=== PATIENT | female | born 1950 | race American Indian/Alaskan Native ===

== ENCOUNTER 2017-01-31 14:42 | Outpatient (CLI) | payer MEDICARE | END 2017-01-31 14:43 | disposition home or self-care (01) | LOC: LABHHL 14:42 | PROVIDERS: ATTEND Internal Medicine Gastroenterology | DX: Z98.890 Other specified postprocedural states (principal) | CPT/HCPCS: 88305 ==

== ENCOUNTER 2021-03-24 06:10 | Observation (INO) | payer MEDICARE ==
[2021-03-22 13:33] LABS: Hematocrit 37.3 % (30.3-42.9); Hemoglobin 11.9 gm/dl (10.1-14.3); Mean Corpuscular HGB Conc 32 % (30-34); Mean Corpuscular Volume 81 fl (79-97); Platelet Count 178 K/mm3 (140-440); Red Blood Count 4.59 M/mm3 (3.65-5.03); Red Cell Distribution Width 15.5 % (13.2-15.2)
[2021-03-22 13:42] LABS: Blood Urea Nitrogen 18 mg/dL (7-17); Calcium 8.9 mg/dL (8.4-10.2); Hemolysis Index 11
--- NOTE | 2021-03-22 14:06 | Anesthesia Consultation ---
Anesthesia Consult and Med Hx Date of service: 03/24/21 - Airway Anesthetic Teeth Evaluation: Poor, Chipped ROM Head & Neck: Adequate Mental/Hyoid Distance: Adequate Mallampati Class: Class I Intubation Access Assessment: Good - Pre-Operative Health Status ASA Pre-Surgery Classification: ASA4 Proposed Anesthetic Plan: General - Pulmonary Hx Smoking: Yes (STOPPED 1998-1PPD X 17YRS) Hx Asthma: Yes (Uses PRN inhalers USED LAST IN FEBRUARY 2021) Hx Respiratory Symptoms: Yes (Chronic bronchitis) SOB: Yes (NOVAK) COPD: Yes Hx Pneumonia: No Hx Sleep Apnea: Yes (COMPLIANT) - Cardiovascular System Hx Hypertension: Yes (20YRS) Hx Coronary Artery Disease: No Hx Heart Attack/AMI: No Hx Pacemaker: No Hx Internal Defibrillator: No Hx Heart Murmur: No - Central Nervous System Hx Neuromuscular Disorder: Yes (Neuropathy RUE) Hx Seizures: No Hx Back Pain: Yes Hx Psychiatric Problems: No - Gastrointestinal Hx Gastroesophageal Reflux Disease: Yes (Mild) - Endocrine Hx Renal Disease: Yes (Stones) Hx End Stage Renal Disease: No Hx Cirrhosis: No Hx Liver Disease: No Hx Non-Insulin Dependent Diabetes: Yes (No meds. 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
[2021-03-22 14:22] LABS: BUN/Creatinine Ratio 26
[~2021-03-24 06:10] MED LIST: BACTERIOSTATIC SODIUM CHLORIDE 0.9% 30 ML VIAL INFILTRATI ONE; LACTATED RINGERS 1,000 ML IV SCH
[2021-03-24] MEDS ORDERED: ceFAZolin/STERILE WATER 2 GM/20 ML SYRINGE IV NR (07:00)
[2021-03-24] MEDS ORDERED: ONDANSETRON 4 MG/2 ML INJ IV PRN ×2 (07:19→10:00)
--- NOTE | 2021-03-24 07:19 | Anesthesia Day of Surgery ---
Anesthesia Day of Surgery - Day of Surgery Patient Examined: Yes Patient H&P Reviewed: Yes Patient is NPO: Yes
[2021-03-24] MEDS ORDERED: propofoL 200 MG/20 ML VIAL IV ONE (07:20)
[2021-03-24] MEDS ORDERED: LIDOCAINE MPF (2%) 20 MG/1 ML VIAL 5 ML ONE (07:20)
[2021-03-24] MEDS ORDERED: MIDAZOLAM 2 MG/2 ML INJ ONE (07:40)
[2021-03-24] MEDS ORDERED: IOHEXOL 240 MG/ML 200 ML IV ONE (08:30)
[2021-03-24] MEDS ORDERED: SODIUM CHLORIDE 0.9% 0 ML ONE (08:49)
[2021-03-24] MEDS ORDERED: SODIUM CHLORIDE 0.9% 50 ML ONE (08:50)
[2021-03-24] MEDS ORDERED: ONDANSETRON 4 MG/2 ML INJ ONE (08:56)
[2021-03-24] MEDS ORDERED: NALOXONE 0.4 MG/1 ML INJ IV PRN (09:08)
[2021-03-24] MEDS: HYDROmorphone 1 MG/1 ML INJ IV PRN ×4 (09:14→09:50)
[2021-03-24] MEDS ORDERED: NON-FORMULARY EACH (Albuterol Sulfate [Proair Respiclick] 90 MCG Aer.Pow.Ba) IH SCH (09:15)
[2021-03-24] MEDS ORDERED: KETOROLAC 30 MG/1 ML INJ IV NR (09:59)
[2021-03-24] MEDS ORDERED: LISINOPRIL PO SCH (10:00)
[2021-03-24] MEDS ORDERED: SODIUM CHLORIDE 0.45% 1000 ML 1,000 ML IV SCH (10:00)
[2021-03-24] MEDS ORDERED: HYDROCHLOROTHIAZIDE PO SCH (10:00)
[2021-03-24] MEDS ORDERED: ACETAMINOPHEN 325 MG TAB PO PRN (10:00)
[2021-03-24] MEDS ORDERED: amLODIPine 10 MG TAB PO SCH (10:00)
[2021-03-24] MEDS ORDERED: MORPHINE 2 MG/1 ML INJ IV PRN (10:00)
[2021-03-24] MEDS ORDERED: atenoloL 25 MG TAB PO SCH (10:00)
[2021-03-24] MEDS ORDERED: KETOROLAC 30 MG/1 ML INJ ONE (10:02)
--- NOTE | 2021-03-24 10:08 | Short Stay Summary ---
Short Stay Documentation Date of service: 03/24/21 - History H&P: obtained from office - Allergies and Medications Current Medications: Allergies sulfamethoxazole Allergy (Verified 03/22/21 14:51) Unknown Home Medications Medication Instructions Recorded Confirmed Last Taken Type Cholecalciferol Vit D3 [Vitamin D3 5,000 unit PO DAILY tablet 01/08/16 03/04/16 Unknown Rx 1,000 UNIT TAB] amLODIPine 10 mg PO DAILY tablet 01/08/16 03/24/21 03/24/21 03:30 Rx atenoloL [Tenormin] 12.5 mg PO DAILY tablet 01/08/16 03/24/21 03/24/21 03:30 Rx Potassium Chloride [Klor-Con M20] 20 meq PO QDAY 03/04/16 03/04/16 Unknown History Albuterol Sulfate [Proair 90 mcg IH PRN 03/19/21 03/19/21 Unknown History Respiclick] Aspirin 81 mg PO DAILY 03/19/21 03/19/21 Unknown History Black Cumin 1 tab PO DAILY 03/19/21 Unknown History Calcium & Magnesium 1 tab PO DAILY 03/19/21 Unknown History Lisinop/Hctz 20 mg PO DAILY 03/19/21 Unknown History Tart Sosa Capsule 1 cap PO DAILY 03/19/21 03/19/21 Unknown History Turmeric 1 cap PO DAILY 03/19/21 03/19/21 Unknown History Active Medications Acetaminophen (Acetaminophen 325 Mg Tab) 650 mg PO Q4H PRN PRN Reason: Pain MILD(1-3)/Fever >100.5/AYALA Hydrocodone Bitart/Acetaminophen (Hydrocodone/Acetaminophen 5-325 Mg Tab) 2 each PO Q6H PRN PRN Reason: Pain, Moderate (4-6) Albuterol (Albuterol 2.5 Mg/3 Ml Nebu) 2.5 mg IH Q4HRT PRN PRN Reason: Shortness Of Breath Amlodipine Besylate (Amlodipine 10 Mg Tab) 10 mg PO DAILY SELINA Atenolol (Atenolol 25 Mg Tab) 12.5 mg PO DAILY SELINA Cefazolin Sodium (Cefazolin/Sterile Water 2 Gm/20 Ml Syringe) 2 gm IV PREOP NR Stop: 03/24/21 20:00 Hydromorphone HCl (Hydromorphone 1 Mg/1 Ml Inj) 0.25 mg IV Q10MIN PRN PRN Reason: Pain, Moderate (4-6) Stop: 03/24/21 23:00 Last Admin: 03/24/21 09:24 Dose: 0.25 mg Documented by: Hydromorphone HCl (Hydromorphone 1 Mg/1 Ml Inj) 0.5 mg IV Q10MIN PRN PRN Reason: Pain , Severe (7-10) Stop: 03/24/21 23:00 Last Admin: 03/24/21 09:50 Dose: 0.5 mg Documented by: Lactated Ringer's (Lactated Ringers) 1,000 mls @ 42 mls/hr IV DIRECT SELINA Last Admin: 03/24/21 07:45 Dose: 42 mls/hr Documented by: Sodium Chloride (Nacl 0.45% 1000 Ml) 1,000 mls @ 100 mls/hr IV DIRECT SELINA Cefazolin Sodium (Ancef/Ns 1 Gm/50 Ml) 1 gm in 50 mls @ 100 mls/hr IV Q8H SELINA; Protocol Ketorolac Tromethamine (Ketorolac 30 Mg/1 Ml Inj) 15 mg IV ONCE NR Stop: 03/24/21 16:00 Miscellaneous Medication (Lisinop/Hctz) 20 mg PO DAILY SELINA Morphine Sulfate (Morphine 2 Mg/1 Ml Inj) 2 mg IV Q4H PRN PRN Reason: Pain, Moderate (4-6) Naloxone HCl (Naloxone 0.4 Mg/1 Ml Inj) 0.1 mg IV Q2MIN PRN PRN Reason: Res Rate </= 8 or 02 SAT < 92% Ondansetron HCl (Ondansetron 4 Mg/2 Ml Inj) 4 mg IV ONCE PRN PRN Reason: Nausea And Vomiting Stop: 03/24/21 13:00 Ondansetron HCl (Ondansetron 4 Mg/2 Ml Inj) 4 mg IV Q8H PRN PRN Reason: Nausea And Vomiting Sodium Chloride (Sodium Chloride 0.9% 10 Ml Flush Syringe) 10 ml IV BID SELINA Sodium Chloride (Sodium Chloride 0.9% 10 Ml Flush Syringe) 10 ml IV PRN PRN PRN Reason: LINE FLUSH - Brief post op/procedure progress note Date of procedure: 03/24/21 Pre-op diagnosis: left hydro Post-op diagnosis: same Procedure: cysto, rpg, flex left ureteroscopy, attempted stent Anesthesia: RAISAA Surgeon: ASHOK GAVIN Estimated blood loss: none Pathology: list (barbotage) Condition: stable - Hospital course Hospital course: unable to place stent---dense stricture (blockage) consult IR for perc tube consult hospitalist for medical mgmt perc tube placed----stent per dr. orozco/bina serna & pain meds on chart - Disposition Condition at discharge: Stable Disposition: [id number] TO HOME OR [facility] Short Stay Discharge Plan Follow up with: JENNI BABB [Other] - 7 Days
[2021-03-24] MEDS ORDERED: LISINOPRIL 20 MG TAB PO SCH (11:00)
[2021-03-24] MEDS ORDERED: hydroCHLOROthiazide 25 MG TAB PO SCH (11:00)
--- NOTE | 2021-03-24 11:04 | Event Note ---
Date: 03/24/21 70-year-old female with left-sided hydronephrosis who requires nephrostomy tube placement and possible stent placement with inability to place the cystoscopically. Ordered CT scan. Restored diet. N.p.o. after midnight except sips of water with meds. Plan for nephrostomy tube tomorrow.
--- NOTE | 2021-03-24 11:38 | Consultation ---
History of Present Illness - Reason for Consult Consult date: 03/24/21 Medical Mx Requesting physician: ASHOK CUTLER - History of Present Illness 70-year-old female with history of obesity asthma hypertension who initially came to hospital for cystoscopy and stent placement for left-sided hydronephrosis by urologist Dr. Cutler. But Dr. Cutler was unable to put a stent with cystoscopy. IR has been consulted to place a left PCN tube. Patient is being admitted for observation. Hospitalist service has been consulted for medical management. Past medical History: h/o asthma, hypertension, morbid obesity Past surgical History: s/p hysterectomy, hip replacement, right knee replacement Social History: Lives with family, denies any smoking, drinking and elicit drug abuse. Family History: Significant for colon cancer in sister, brother has history of chronic kidney disease Review of System: Constitutional: no fever, no chills, no weight loss Ears, eyes, nose, mouth and throat: no nasal congestion, no nasal discharge, no sinus pressure, no vision change, no red eye. Neck: No neck pain or rigidity. Cardiovascular: No chest pain, no orthopnea, no palpitations, no leg swelling Respiratory: No shortness of breath, no cough, no congestion, no wheezing Gastrointestinal: no abdominal pain, no nausea, no vomiting Genitourinary : no dysuria, no hematuria Musculoskeletal: no joint swelling or muscle ache Integumentary: no rash, no pruritis Neurological: no parathesias, no numbness, no tingling Endocrine: no cold or heat intolerance, no polyuria or polydipsia Hematologic/Lymphatic: no easy bruising, no easy bleeding, no gland swelling Allergic/Immunologic: no urticaria, no angioedema. Medications and Allergies Allergies Allergy/AdvReac Type Severity Reaction Status Date / Time sulfamethoxazole Allergy Unknown Verified 03/22/21 14:51 Home Medications Medication Instructions Recorded Confirmed Last Taken Type Cholecalciferol Vit D3 [Vitamin D3 5,000 unit PO DAILY tablet 01/08/16 03/24/21 03/20/21 Rx 1,000 UNIT TAB] amLODIPine 10 mg PO DAILY tablet 01/08/16 03/24/21 03/24/21 05:30 Rx atenoloL [Tenormin] 12.5 mg PO DAILY tablet 01/08/16 03/24/21 03/24/21 05:30 Rx Potassium Chloride [Klor-Con M20] 20 meq PO QDAY 03/04/16 03/24/21 03/20/21 History Albuterol Sulfate [Proair 90 mcg IH PRN 03/19/21 03/24/21 1 Month Ago History Respiclick] ~02/22/21 Aspirin 81 mg PO DAILY 03/19/21 03/24/21 1 Week Ago History ~03/17/21 Black Cumin 1 tab PO DAILY 03/19/21 03/24/21 03/20/21 History Calcium & Magnesium 1 tab PO DAILY 03/19/21 03/24/21 03/20/21 History Lisinop/Hctz 20 mg PO DAILY 03/19/21 03/24/21 03/20/21 History Tart Sosa Capsule 1 cap PO DAILY 03/19/21 03/19/21 03/20/21 History Turmeric 1 cap PO DAILY 03/19/21 03/19/21 03/20/21 History Toviaz 8 mg PO DAILY 03/24/21 03/24/21 03/20/21 History metFORMIN 500 mg PO DAILY 03/24/21 03/24/21 03/20/21 History Active Meds: Active Medications Acetaminophen (Acetaminophen 325 Mg Tab) 650 mg PO Q4H PRN PRN Reason: Pain MILD(1-3)/Fever >100.5/AYALA Hydrocodone Bitart/Acetaminophen (Hydrocodone/Acetaminophen 5-325 Mg Tab) 2 each PO Q6H PRN PRN Reason: Pain, Moderate (4-6) Albuterol (Albuterol 2.5 Mg/3 Ml Nebu) 2.5 mg IH Q4HRT PRN PRN Reason: Shortness Of Breath Amlodipine Besylate (Amlodipine 10 Mg Tab) 10 mg PO DAILY SELINA Atenolol (Atenolol 25 Mg Tab) 12.5 mg PO DAILY SELINA Cefazolin Sodium (Cefazolin/Sterile Water 2 Gm/20 Ml Syringe) 2 gm IV PREOP NR Stop: 03/24/21 20:00 Hydrochlorothiazide (Hydrochlorothiazide 25 Mg Tab) 25 mg PO QDAY SELINA Hydromorphone HCl (Hydromorphone 1 Mg/1 Ml Inj) 0.25 mg IV Q10MIN PRN PRN Reason: Pain, Moderate (4-6) Stop: 03/24/21 23:00 Last Admin: 03/24/21 09:24 Dose: 0.25 mg Documented by: Hydromorphone HCl (Hydromorphone 1 Mg/1 Ml Inj) 0.5 mg IV Q10MIN PRN PRN Reason: Pain , Severe (7-10) Stop: 03/24/21 23:00 Last Admin: 03/24/21 09:50 Dose: 0.5 mg Documented by: Lactated Ringer's (Lactated Ringers) 1,000 mls @ 42 mls/hr IV DIRECT SELINA Last Admin: 03/24/21 07:45 Dose: 42 mls/hr Documented by: Sodium Chloride (Nacl 0.45% 1000 Ml) 1,000 mls @ 100 mls/hr IV DIRECT SELINA Cefazolin Sodium (Ancef/Ns 1 Gm/50 Ml) 1 gm in 50 mls @ 100 mls/hr IV Q8H SELINA; Protocol Ketorolac Tromethamine (Ketorolac 30 Mg/1 Ml Inj) 15 mg IV ONCE NR Stop: 03/24/21 16:00 Last Admin: 03/24/21 10:06 Dose: 15 mg Documented by: Lisinopril (Lisinopril 20 Mg Tab) 20 mg PO QDAY SELINA Morphine Sulfate (Morphine 2 Mg/1 Ml Inj) 2 mg IV Q4H PRN PRN Reason: Pain, Moderate (4-6) Naloxone HCl (Naloxone 0.4 Mg/1 Ml Inj) 0.1 mg IV Q2MIN PRN PRN Reason: Res Rate </= 8 or 02 SAT < 92% Ondansetron HCl (Ondansetron 4 Mg/2 Ml Inj) 4 mg IV ONCE PRN PRN Reason: Nausea And Vomiting Stop: 03/24/21 13:00 Ondansetron HCl (Ondansetron 4 Mg/2 Ml Inj) 4 mg IV Q8H PRN PRN Reason: Nausea And Vomiting Sodium Chloride (Sodium Chloride 0.9% 10 Ml Flush Syringe) 10 ml IV BID SELINA Sodium Chloride (Sodium Chloride 0.9% 10 Ml Flush Syringe) 10 ml IV PRN PRN PRN Reason: LINE FLUSH Exam - Physical Exam Narrative exam: GENERAL: Morbidly obese elderly AA female lying on bed appeared to be in no di [place]om[place]. HEENT: Normocephalic. Atraumatic. No conjunctival congestion or icterus. Patient has moist mucous membranes. NECK: Supple. Trachea midline. CHEST/LUNGS: Clear to auscultated bilaterally, breathing nonlabored. No wheezes crackles or rhonchi. HEART/CARDIOVASCULAR: Regular in rate and rhythm. S1 and S2 positive. ABDOMEN: Abdomen is soft, nontender. Patient has normal bowel sounds. SKIN: There is no rash. Warm and dry. NEURO: No focal motor deficit. Follows command. MUSCULOSKELETAL: No joint effusion or tenderness. EXTRIMITY: No edema, no cyanosis or clubbing. PSYCH: Cooperative. - Constitutional Vitals: Temp Pulse Resp BP Pulse Ox 98.4 F 58 L 20 140/70 96 03/24/21 10:30 03/24/21 10:30 03/24/21 10:30 03/24/21 10:30 03/24/21 10:30 Results - Labs CBC & Chem 7: 03/22/21 06:00 03/25/21 04:09 - Imaging and Cardiology CT scan - abdomen: pending Assessment and Plan Left hydronephrosis -Status post cystoscopy but unable to place stent by urology -IR has been consulted for a left PCN tube -Ordered CT abdomen pelvis - report currently pending - NPO after midnight, planned for PCN tomorrow Hypertension, resume home meds, cardiac diet Morbid obesity, dietary and exercise mentation as outpatient when clinically more stable History of asthma, no acute distress continue nebs as needed DVT prophylaxis, SCD for now
--- NOTE | 2021-03-24 11:58 | Post Anesthesia Evaluation ---
- Post Anesthesia Evaluation Patient Participated: Yes Airway Patent: Yes Stable Respiratory Function: Yes Nausea/Vomiting: No Temp > 96.8F: Yes Pain Manageable: Yes Adequeate Hydration: Yes Anesthesia Complications: No Block Receding Appropriately: Not Applicable Patient on Ventilator: No
[2021-03-24] MEDS ORDERED: CHOLECALCIFEROL (VIT D3) 5,000 UNIT TAB PO SCH (12:00)
[2021-03-24] MEDS ORDERED: CHOLECALCIFEROL (VIT D3) 1000 UNIT (25 mcg) TAB PO SCH (12:00)
[2021-03-24] MEDS ORDERED: ALBUTEROL 2.5 MG/3 ML NEBU IH PRN (12:00)
--- NOTE | 2021-03-24 12:07 | Cat Scan Report ---
CT ABDOMEN AND PELVIS WITHOUT CONTRAST INDICATION / CLINICAL INFORMATION: hydronephrosis, renal stone. TECHNIQUE: Axial CT images were obtained through the abdomen and pelvis without IV contrast. All CT scans at this location are performed using CT dose reduction for ALARA by means of automated exposure control. COMPARISON: Radiograph from 06/30/2015. FINDINGS: LOWER CHEST: Patchy bibasilar volume loss and/or mild interstitial edema. LIVER: No significant abnormality GALLBLADDER/BILIARY TREE: No significant abnormality PANCREAS: No significant abnormality SPLEEN: No significant abnormality ADRENALS: No significant abnormality RIGHT KIDNEY: Small focus of gas within a right renal calyx is presumably related to intervention. Th e distal right ureter is obscured by streak artifact from right hip arthroplasty, though there is no urolithiasis identified within the proximal to mid ureter. No evidence of hydronephrosis. LEFT KIDNEY: There is marked left renal atrophy with severe left hydroureteronephrosis to the level o f the mid left ureter, where there is a 5 mm ureteral stone (series 2 image 126 and series 602 image 109). URINARY BLADDER: Bladder is partially decompressed and not well evaluated. Increased attenuation with in the bladder likely reflects contrast from recent intervention. UTERUS: Hysterectomy STOMACH / SMALL BOWEL: Stomach and small bowel are normal in caliber. No evidence of bowel inflammati on. COLON: Postoperative changes at the rectosigmoid junction. Scattered colonic diverticula without CT e vidence diverticulitis. The appendix is normal in caliber. LYMPH NODES: No significant adenopathy. VASCULATURE: No significant abnormality. OTHER: No free air, free fluid, or focal fluid collection is identified. SKELETAL SYSTEM: Asymmetric severe right SI joint degenerative arthrosis with extensive periarticular sclerosis and cortical erosive changes. This appears progressed from prior exam from 2015. Right tot al hip arthroplasty appears intact. Severe left hip osteoarthritis. No acute process. IMPRESSION: 1. Marked left renal atrophy with severe left hydroureteronephrosis related to 5 mm ureteral stone in the mid ureter. 2. No urolithiasis or hydronephrosis on the right. Distal ureter is obscured by streak artifact from hip arthroplasty. 3. 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 Signer Name: Chris Bray MD Signed: 03/24/2021 12:03 PM Workstation Name: [id number]
--- NOTE | 2021-03-24 12:48 | Operative Report ---
DATE OF SURGERY: 03/24/2021 PREOPERATIVE DIAGNOSIS: Left hydronephrosis. POSTOPERATIVE DIAGNOSIS: Left hydronephrosis. PROCEDURES: Cystoscopy, bilateral retrograde pyelograms, left flexible ureteroscopy. SURGEON: Dr. Cutler. ANESTHESIA: General. ESTIMATED BLOOD LOSS: Minimal. FLUIDS: Crystalloid. COMPLICATIONS: No complications. INDICATIONS: A 70-year-old female was seen in the office for left flank pain. CT of abdomen and pelvis revealed left hydronephrosis. She presents now for surgical intervention. Also of note, she has a history of colon cancer, status post resection in 2005 with chemo and radiation. DESCRIPTION OF PROCEDURE: The patient was taken to the operative suite, placed in a supine position. After adequate general anesthesia, placed in the dorsal lithotomy position, prepped and draped in a sterile fashion. Rondon-cystourethroscopy was performed with a 22[place] Storz cystoscope. No acute bladder pathology. Bilateral retrograde pyelograms were obtained with an 8[place] Bannister catheter and 8 mL of contrast. No filling defects or obstruction on the right. Left side, the contrast went up to one third to the pelvic brim, could not advance any further. Two 0.035 Glidewires were placed. Flexible ureteroscopy was performed up to this blind ending ureter. Multiple attempts to inject more dye and placed a wire were unsuccessful. A portable scope was removed. Bladder was drained. She is extubated and taken to recovery room. We will admit her overnight, consult interventional radiology for stent placement. TID: [id number] RECEIPT: [id number] [facility]/STD
--- NOTE | 2021-03-24 13:43 | Fluoroscopy Report ---
[place] cystogram static-OR, [place] retrograde urography INDICATION / CLINICAL INFORMATION: LT HYDRONEPHROSIS. COMPARISON: None available. FINDINGS: Injection of the bladder is unremarkable. Normal retrograde appearance of the right ureter. Distal ob struction on the left. Fluoroscopy time: 1.5 minutes. Fluoroscopic images: 11. Signer Name: Rogelio Moyer MD Signed: 03/24/2021 1:39 PM Workstation Name: [id number]
[2021-03-24] MEDS: ceFAZolin/NS 1 GM/50 ML 1 GM/50 ML BAG IV SCH (17:21)
[2021-03-24] MEDS: HYDROcodone/ACETAMINOPHEN 5-325 MG TAB PO PRN (21:08)
[2021-03-25] MEDS: ceFAZolin/NS 1 GM/50 ML 1 GM/50 ML BAG IV SCH ×2 (01:00→08:20)
[2021-03-25 04:51] LABS: BUN/Creatinine Ratio 27; Blood Urea Nitrogen 19 mg/dL (7-17); Calcium 8.8 mg/dL (8.4-10.2); Hemolysis Index 26
[2021-03-25] MEDS: HYDROcodone/ACETAMINOPHEN 5-325 MG TAB PO PRN ×2 (08:05→15:13)
[2021-03-25] MEDS ORDERED: LIDOCAINE 1%/EPINEPHRINE 1:100,000 VIAL (20 ML) INFILTRATI ONE (10:08)
[2021-03-25] MEDS ORDERED: SODIUM CHLORIDE IRRI 500 ML 500 ML IR ONE (10:08)
[2021-03-25] MEDS ORDERED: SODIUM CHLORIDE 0.9% 500 ML 500 ML ONE (10:09)
--- NOTE | 2021-03-25 10:12 | Progress Note ---
Assessment and Plan for left perc in ir holding pt fully understands Subjective Date of service: 03/25/21 Principal diagnosis: l hydro Objective - Constitutional Vitals: Vital Signs - 12hr 03/24/21 03/24/21 03/25/21 22:34 23:11 01:29 Temperature 98.0 F Pulse Rate 53 L 85 Respiratory 20 20 Rate Blood Pressure 122/40 O2 Sat by Pulse 95 98 95 Oximetry 03/25/21 03/25/21 04:56 07:28 Temperature 97.6 F 97.8 F Pulse Rate 71 71 Respiratory 20 18 Rate Blood Pressure 155/57 123/58 O2 Sat by Pulse 98 96 Oximetry General appearance: Present: no acute distress - Neck Neck: supple - Respiratory Respiratory effort: normal Extremities: no ischemia - Gastrointestinal General gastrointestinal: Present: non-tender - Labs CBC & Chem 7: 03/22/21 06:00 03/25/21 04:09 Labs: Abnormal lab results 03/24/21 03/25/21 Range/Units 09:11 04:09 BUN 19 H (7-17) mg/dL Glucose 167 H (65-100) mg/dL POC Glucose 180 H (70-105) mg/dL Medications & Allergies - Medications Allergies/Adverse Reactions: Allergies sulfamethoxazole Allergy (Verified 03/22/21 14:51) Unknown Home Medications: Home Medications Medication Instructions Recorded Confirmed Last Taken Type Cholecalciferol Vit D3 [Vitamin D3 5,000 unit PO DAILY tablet 01/08/16 03/24/21 03/20/21 Rx 1,000 UNIT TAB] amLODIPine 10 mg PO DAILY tablet 01/08/16 03/24/21 03/24/21 05:30 Rx atenoloL [Tenormin] 12.5 mg PO DAILY tablet 01/08/16 03/24/21 03/24/21 05:30 Rx Potassium Chloride [Klor-Con M20] 20 meq PO QDAY 03/04/16 03/24/21 03/20/21 History Albuterol Sulfate [Proair 90 mcg IH PRN 03/19/21 03/24/21 1 Month Ago History Respiclick] ~02/22/21 Aspirin 81 mg PO DAILY 03/19/21 03/24/21 1 Week Ago History ~03/17/21 Black Cumin 1 tab PO DAILY 03/19/21 03/24/21 03/20/21 History Calcium & Magnesium 1 tab PO DAILY 03/19/21 03/24/21 03/20/21 History Lisinop/Hctz 20 mg PO DAILY 03/19/21 03/24/21 03/20/21 History Tart Sosa Capsule 1 cap PO DAILY 03/19/21 03/19/21 03/20/21 History Turmeric 1 cap PO DAILY 03/19/21 03/19/21 03/20/21 History Toviaz 8 mg PO DAILY 03/24/21 03/24/21 03/20/21 History metFORMIN 500 mg PO DAILY 03/24/21 03/24/21 03/20/21 History Active Medications: Generic Name Dose Route Start Last Admin Trade Name Freq PRN Reason Stop Dose Admin Acetaminophen 650 mg 03/24/21 10:00 Acetaminophen 325 Mg Tab PO Q4H PRN Pain MILD(1-3)/Fever >100.5/AYALA Hydrocodone Bitart/Acetaminophen 2 each 03/24/21 10:00 03/25/21 08:05 Hydrocodone/Acetaminophen 5-325 Mg Tab PO 2 each Q6H PRN Administration Pain, Moderate (4-6) Albuterol 2.5 mg 03/24/21 12:00 Albuterol 2.5 Mg/3 Ml Nebu IH Q4HRT PRN Shortness Of Breath Amlodipine Besylate 10 mg 03/24/21 10:00 03/24/21 18:01 Amlodipine 10 Mg Tab PO Not Given DAILY SELINA Atenolol 12.5 mg 03/24/21 10:00 03/24/21 18:02 Atenolol 25 Mg Tab PO Not Given DAILY [facility] Cholecalciferol 5,000 unit 03/24/21 12:00 03/24/21 19:54 Cholecalciferol (Vit D3) 5,000 Unit Tab PO Not Given QDAY [facility] Hydrochlorothiazide 25 mg 03/24/21 11:00 03/24/21 18:02 Hydrochlorothiazide 25 Mg Tab PO Not Given QDAY [facility] Sodium Chloride 1,000 mls @ 100 mls/hr 03/24/21 10:00 03/25/21 03:57 Nacl 0.45% 1000 Ml IV Infused DIRECT SELINA Infusion Cefazolin Sodium 1 gm in 50 mls @ 100 mls/hr 03/24/21 16:00 03/25/21 08:20 Ancef/Ns 1 Gm/50 Ml IV 100 mls/hr Q8H SELINA Administration Protocol Lisinopril 20 mg 03/24/21 11:00 03/24/21 18:02 Lisinopril 20 Mg Tab PO Not Given QDAY SELINA Morphine Sulfate 2 mg 03/24/21 10:00 Morphine 2 Mg/1 Ml Inj IV Q4H PRN Pain, Moderate (4-6) Naloxone HCl 0.1 mg 03/24/21 09:08 Naloxone 0.4 Mg/1 Ml Inj IV Q2MIN PRN Res Rate </= 8 or 02 SAT < 92% Ondansetron HCl 4 mg 03/24/21 10:00 Ondansetron 4 Mg/2 Ml Inj IV Q8H PRN Nausea And Vomiting Sodium Chloride 10 ml 03/24/21 10:00 03/25/21 05:49 Sodium Chloride 0.9% 10 Ml Flush Syringe IV 10 ml BID SELINA Administration Sodium Chloride 10 ml 03/24/21 10:00 Sodium Chloride 0.9% 10 Ml Flush Syringe IV PRN PRN LINE FLUSH
[2021-03-25] MEDS ORDERED: MIDAZOLAM 2 MG/2 ML INJ ONE (11:38)
--- NOTE | 2021-03-25 11:56 | Progress Note ---
Assessment and Plan Left hydronephrosis -Status post cystoscopy but unable to place stent by urology -IR has been consulted for a left PCN tube -CT abdomen pelvis left moderate to severe hydronephrosis with mid ureteric stone - NPO after midnight, planned for PCN today Hypertension, cont home meds, Morbid obesity, dietary and exercise mentation as outpatient when clinically more stable History of asthma, no acute distress continue nebs as needed DVT prophylaxis, SCD for now --If clinically stable she could be discharged home after PCN tube placement. Subjective Date of service: 03/25/21 Principal diagnosis: Left hydronephrosis Interval history: Patient seen and examined. Medical records and medication list reviewed. No acute event overnight noted by the RN. Patient denies any chest pain or difficulty breathing. Plan for left-sided PCN tube placement today Discussed plan of care at bedside with patient. Objective - Exam Narrative Exam: GENERAL: Morbidly obese elderly AA female lying on bed appeared to be in no discomfort. HEENT: Normocephalic. Atraumatic. No conjunctival congestion or icterus. Patient has moist mucous membranes. NECK: Supple. Trachea midline. CHEST/LUNGS: Clear to auscultated bilaterally, breathing nonlabored. No wheezes crackles or rhonchi. HEART/CARDIOVASCULAR: Regular in rate and rhythm. S1 and S2 positive. ABDOMEN: Abdomen is soft, nontender. Patient has normal bowel sounds. SKIN: There is no rash. Warm and dry. NEURO: No focal motor deficit. Follows command. MUSCULOSKELETAL: No joint effusion or tenderness. EXTRIMITY: No edema, no cyanosis or clubbing. PSYCH: Cooperative. - Constitutional Vitals: Vital Signs - 12hr 03/25/21 03/25/21 03/25/21 01:29 04:56 07:28 Temperature 97.6 F 97.8 F Pulse Rate 85 71 71 Respiratory 20 20 18 Rate Blood Pressure 155/57 123/58 O2 Sat by Pulse 95 98 96 Oximetry - Labs CBC & Chem 7: 03/22/21 06:00 03/25/21 04:09 Labs: Abnormal lab results 03/24/21 03/25/21 Range/Units 09:11 04:09 BUN 19 H (7-17) mg/dL Glucose 167 H (65-100) mg/dL POC Glucose 180 H (70-105) mg/dL
[2021-03-25] MEDS: fentaNYL 100 MCG/2 ML INJ ONE ×2 (12:32→12:36)
--- NOTE | 2021-03-25 12:49 | Operative Report ---
Operative Report Operative Report: Exam: Ultrasound fluoroscopic guided placement of nephrostomy tube Clinical indication: Patient with a history of left hydronephrosis, unable to place ureteral stent Date: 03/25/2021 Procedure: Following an explanation of the risk, benefits and alternatives; written informed consent was obtained. The patient was brought to the angiographic suite and placed in prone position on the examination table. Initial ultrasound evaluation of the kidney demonstrated a dilated severely hydronephrotic left kidney. The patient's left flank was prepped and draped in the usual sterile fashion. 1% lidocaine was used for anesthesia. Under ultrasound guidance, a 21-gauge 15 cm needle was advanced into the central aspect of the kidney. The calyces were not well visualized secondary to cortical thinning. There was prompt return of clear yellow urine. A sample was removed and sent for laboratory analysis. A 0.018 guidewire was advanced through the needle and the needle removed and exchanged for an AccuStick transition dilator. The 0.018 guidewire was exchanged for a 0.035 guidewire and the transition dilator removed. Following serial dilation, an 8 [place] nephrostomy tube was advanced over the guidewire centrally. Positioning was confirmed with imaging. The guidewire was removed. There is prompt return of clear yellow urine. Contrast was gently injected which demonstrated severe hydronephrosis in the left kidney. The catheter was securely fastened to the skin surface using 2-0 Ethilon suture and a stay fix device. The catheter was then placed to dependent drainage. Sterile dressings were then applied. The patient tolerated the procedure well. There were no immediate postprocedure complications. Conscious sedation was performed under the guidance of radiologic nursing. Continuous cardiopulmonary monitoring was utilized. Impression: Ultrasound and fluoroscopic guided placement of 8 [place] nephrostomy tube in the left kidney. The kidney will need to decompress for approximately 1 week and the patient may return as an outpatient for antegrade placement of ureteral stent.
--- NOTE | 2021-03-25 12:50 | Event Note ---
Date: 03/25/21 Patient status post placement of nephrostomy tube. Follow her recovery time of 2 hours, the patient may be discharged home. She will need to be scheduled as an outpatient for conversion of the nephrostomy tube to ureteral stent.
[2021-03-25 13:50] VITALS: BP 91/58
== END 2021-03-25 16:26 | disposition home or self-care (01) ==
LOC: OR 06:10 → 3B-SURG 09:08
PROVIDERS: ADMIT Urology; ATTEND Urology
DX: N13.30 Unspecified hydronephrosis (principal); Z20.828 Contact with and (suspected) exposure to other viral communicable diseases; N39.46 Mixed incontinence; R03.0 Elevated blood-pressure reading, without diagnosis of hypertension; I10 Essential (primary) hypertension; J45.909 Unspecified asthma, uncomplicated; E66.01 Morbid (severe) obesity due to excess calories; Z68.42 Body mass index [BMI] 45.0-49.9, adult; Z71.3 Dietary counseling and surveillance; Z79.82 Long term (current) use of aspirin; Z90.710 Acquired absence of both cervix and uterus; Z96.651 Presence of right artificial knee joint; Z96.649 Presence of unspecified artificial hip joint; Z79.899 Other long term (current) drug therapy; Z98.890 Other specified postprocedural states
CPT/HCPCS: 36415; 50432; 52005; 74176; 74420; 74430; 76937; 80048; 82962; 85027; 87086; 88112; 96361; 96365; 96366; 96375; 96376; C1729; C1758; C1769; G0378; J0690; J1170; J1885; J2250; J2405; J2704; J3010; J7030; J7040; J7120; Q9967; U0003

== ENCOUNTER 2021-04-29 06:37 | Day surgery (SDC) | payer MEDICARE ==
[2021-04-29 07:42] LABS: Basophils # (Auto) 0.1 K/mm3 (0.0-0.1); Basophils % (Auto) 0.9 % (0.0-1.8); Eosinophils # (Auto) 0.1 K/mm3 (0.0-0.4); Eosinophils % (Auto) 2.2 % (0.0-4.3); Hematocrit 37.8 % (30.3-42.9); Hemoglobin 12.4 gm/dl (10.1-14.3); Lymphocytes # (Auto) 1.6 K/mm3 (1.2-5.4); Lymphocytes % (Auto) 26.9 % (13.4-35.0); Mean Corpuscular HGB Conc 33 % (30-34); Mean Corpuscular Volume 79 fl (79-97); Monocytes # (Auto) 0.6 K/mm3 (0.0-0.8); Monocytes % (Auto) 9.8 % (0.0-7.3); Platelet Count 190 K/mm3 (140-440); Red Blood Count 4.77 M/mm3 (3.65-5.03); Red Cell Distribution Width 15.8 % (13.2-15.2)
[2021-04-29 07:52] LABS: INR 0.97 (0.87-1.13)
[2021-04-29 07:53] LABS: Blood Urea Nitrogen 19 mg/dL (7-17); Calcium 9.4 mg/dL (8.4-10.2); Hemolysis Index 7; Partial Thromboplastin Time 28.3 Sec. (24.2-36.6)
[2021-04-29 07:58] LABS: BUN/Creatinine Ratio 32
[2021-04-29] MEDS ORDERED: SODIUM CHLORIDE 0.9% 500 ML 500 ML IV SCH (08:00)
[2021-04-29] MEDS ORDERED: HEPARIN/NS 5000 UNIT/500ML 1,000 ML IR ONE (08:14)
[2021-04-29] MEDS ORDERED: LIDOCAINE (2%) 20 MG/1 ML VIAL 20 ML MDV INFILTRATI ONE (08:15)
[2021-04-29] MEDS: MIDAZOLAM 2 MG/2 ML INJ ONE ×3 (09:00→09:41)
[2021-04-29] MEDS: fentaNYL 100 MCG/2 ML INJ ONE ×4 (09:00→09:41)
--- NOTE | 2021-04-29 09:56 | Short Stay Summary ---
Short Stay Documentation Date of service: 04/29/21 - History Principal diagnosis: Ureteral stricture H&P: obtained from office - Allergies and Medications Current Medications: Allergies sulfamethoxazole Allergy (Verified 04/29/21 07:06) Itching Home Medications Medication Instructions Recorded Confirmed Last Taken Type Cholecalciferol Vit D3 [Vitamin D3 5,000 unit PO DAILY tablet 01/08/16 04/29/21 04/28/21 Rx 1,000 UNIT TAB] amLODIPine 10 mg PO DAILY tablet 01/08/16 04/29/21 04/29/21 Rx atenoloL [Tenormin] 12.5 mg PO DAILY tablet 01/08/16 04/29/21 04/28/21 Rx Potassium Chloride [Klor-Con M20] 20 meq PO QDAY 03/04/16 04/29/21 04/28/21 History Albuterol Sulfate [Proair 90 mcg IH PRN 03/19/21 04/29/21 04/28/21 History Respiclick] Aspirin 81 mg PO DAILY 03/19/21 04/29/21 04/28/21 History Black Cumin 1 tab PO DAILY 03/19/21 04/29/21 04/28/21 History Calcium & Magnesium 1 tab PO DAILY 03/19/21 04/29/21 04/28/21 History Lisinop/Hctz 20 mg PO DAILY 03/19/21 04/29/21 04/29/21 History Tart Sosa Capsule 1 cap PO DAILY 03/19/21 04/29/21 04/28/21 History Turmeric 1 cap PO DAILY 03/19/21 04/29/21 04/28/21 History Toviaz 8 mg PO DAILY 03/24/21 04/29/21 04/28/21 History metFORMIN 500 mg PO DAILY 03/24/21 04/29/21 04/27/21 History Active Medications Sodium Chloride (Nacl 0.9% 500 Ml) 500 mls @ 50 mls/hr IV DIRECT SELINA Stop: 04/29/21 17:00 Last Admin: 04/29/21 08:23 Dose: 50 mls/hr Documented by: - Brief post op/procedure progress note Date of procedure: 04/29/21 Pre-op diagnosis: Ureteral stricture left Post-op diagnosis: same Procedure: Attempted placement of ureteral stent, nephro ureterogram through existing tube, nephrostomy tube exchange under fluoroscopy Anesthesia: local Surgeon: SHANNON SHARPE Estimated blood loss: none Condition: stable - Disposition Condition at discharge: Good Disposition: DC-01 TO HOME OR SELFCARE Short Stay Discharge Plan Activity: advance as tolerated Weight Bearing Status: Weight Bear as Tolerated Diet: regular Wound: keep clean and dry, per your surgeon's advice Follow up with: JENNI BABB [Other] - 7 Days ASHOK GAVIN MD [Staff Physician] - 7 Days
--- NOTE | 2021-04-29 10:00 | Operative Report ---
Operative Report Operative Report: Exam: Fluoroscopic guided exchange of nephrostomy tube, attempted placement of ureteral stent, nephroureterogram Clinical indication: Patient with a history of attempted cystoscopy and placement of ureteral stent without success secondary to dense stricture. Patient underwent placement of nephrostomy tube to decompress the kidney. Date: 04/29/2021 Procedure: Following an explanation of the risks, benefits and alternatives; written informed consent was obtained. The patient was brought to the [facility] suite and placed in prone position on the examination table. Initial fluoroscopic images of the indwelling left nephrostomy tube were obtained which demonstrates appropriate positioning. The patient's indwelling nephrostomy tube and back were prepped and draped in the usual sterile fashion. 1% lidocaine was used for anesthesia at the catheter exit site and along the tract. Gentle injection of contrast through the indwelling nephrostomy tube was performed. This opacifies moderately decompressed calyces. There is a wisp of proximal ureter. A 0.035 guidewire was then advanced through the catheter after cutting the to release the pigtail. The catheter was then removed intact. An 8 [place] 23 cm sheath was then advanced over the guidewire and positioned with the tip of the sheath in the renal pelvis. Contrast was injected for anatomic localization. A 0.035 guidewire was then advanced through a vertebral catheter and the sheath and selective cannulation of the proximal ureter was performed. Together the catheter and guidewire were advanced through proximal and mid ureter to the level of the pelvic brim. Contrast was injected at multiple locations. This demonstrates a dilated ureter down to the level of the pelvic brim after which there is complete occlusion secondary to significant stricturing. Multiple attempts to cross the stricture were unsuccessful. The guidewire was then reinserted and the vertebral catheter removed. The 8 [place] sheath was removed. A new 8 [place] nephrostomy tube was then advanced over the guidewire under fluoroscopy and advanced to position the pigtail within the renal pelvis. The guidewire and trocar were removed. Contrast was injected to demonstrate appropriate positioning and the catheter was then placed to dependent drainage. The catheter was securely fastened to the skin surface using 2-0 Ethilon suture and a sterile dressing applied. The patient tolerated the procedure well. There were no immediate postprocedure complications. Conscious sedation was performed under the guidance of radiologic nursing. Continuous cardiopulmonary monitoring is utilized. Impression: 1) Attempted placement of ureteral stent that failed secondary to dense stricture within the distal ureter at the level of the pelvic brim. 2) Nephroureterogram through existing nephrostomy tube and through a vertebral catheter placed in the ureter demonstrate moderately dilated renal calyces and dilated ureter down to the level of the stricture. 3) Fluoroscopic guided exchange of nephrostomy tube. 4) The patient will need to follow-up with Dr. Cutler her urologist for further management of her ureteral stricture.
[2021-04-29 14:20] VITALS: BP 143/77
== END 2021-04-29 11:30 | disposition home or self-care (01) ==
LOC: CATHLABREC 06:37
PROVIDERS: ATTEND Radiology Diagnostic Radiology
DX: N13.5 Crossing vessel and stricture of ureter without hydronephrosis (principal); I87.1 Compression of vein; M19.90 Unspecified osteoarthritis, unspecified site; E11.9 Type 2 diabetes mellitus without complications; G47.30 Sleep apnea, unspecified; E66.9 Obesity, unspecified; G62.9 Polyneuropathy, unspecified; E78.00 Pure hypercholesterolemia, unspecified; J43.9 Emphysema, unspecified; K21.9 Gastro-esophageal reflux disease without esophagitis; D64.9 Anemia, unspecified; Z98.890 Other specified postprocedural states; Z87.442 Personal history of urinary calculi; Z88.8 Allergy status to other drugs, medicaments and biological substances; Z79.899 Other long term (current) drug therapy; Z79.82 Long term (current) use of aspirin; Z79.84 Long term (current) use of oral hypoglycemic drugs; Z90.710 Acquired absence of both cervix and uterus; Z87.440 Personal history of urinary (tract) infections; Z72.89 Other problems related to lifestyle; Z96.649 Presence of unspecified artificial hip joint; Z85.038 Personal history of other malignant neoplasm of large intestine; Z68.42 Body mass index [BMI] 45.0-49.9, adult
CPT/HCPCS: 36415; 50435; 80048; 85025; 85610; 85730; 99156; 99157; C1729; C1751; C1769; C1894; J1644; J1956; J2250; J3010; J7040; Q9967